=== PATIENT | male | born 1965 | race Caucasian/White ===

== ENCOUNTER 2023-05-26 10:49 | Emergency (ER) | payer BC, SELFPAY ==
[2023-05-26] VITALS (59 sets, daily range): BP systolic 105–167; BP diastolic 56–100; PULSE 50–81; RESP 12–38; O2SAT 95–100; BMI 32.3
--- NOTE | 2023-05-26 10:59 | DI.RAD.S_ITS ---
PROCEDURE: XR CHEST 1V INDICATIONS: chest pain TECHNIQUE: One view of the chest was acquired. COMPARISON: None. FINDINGS: Surgical changes and devices: None. Lungs and pleura: Lungs are clear. No pleural effusions or pneumothorax. Mediastinum: Mediastinal contours appear normal. Heart size is normal. Bones and chest wall: No suspicious bony lesions. Overlying soft tissues appear unremarkable. IMPRESSION: No acute findings Approved by: Chadwick Perez M.D. on 05/26/2023 at 10:45
--- NOTE | 2023-05-26 10:59 | ED_ITS ---
HPI - Chest Pain General Chief Complaint: Chest Pain Stated Complaint: chest pain Time Seen by Provider: 05/26/23 10:52 History of Present Illness HPI narrative: 57-year-old male nonsmoker with noncontributory medical history presents with his in the chief complaint of chest pain that started this morning. He states it was gradual in onset and is situated in his central chest. There is no obvious provocation or palliation. He states it is crampy in nature and has been persistent for 3 hours. At its most intense it was a 7/10 and currently as a 2/10. He denies obvious radiation of his symptoms and has no associated cardiac equivalent such as dizziness, weakness or lightheadedness. He denies any shortness of breath, nausea, vomiting or diaphoresis. Denies any change in medications or diet. He denies any associated with eating or drinking. He has no exertional symptoms. He denies any unexplained fatigue with exercise and is otherwise well and free of complaint. He denies any history of the same. Related Data Allergies Allergy/AdvReac Type Severity Reaction Status Date / Time No Known Drug Allergies Allergy Verified 05/26/23 11:21 Review of Systems Review of Systems Narrative: GENERAL: Denies chills, fatigue, malaise, fever, sweats. HEENT: Denies sinus pain, ear pain, sore throat, difficulty swallowing, dizziness. RESPIRATORY: Denies dyspnea, cough, wheezing, hemoptysis, sputum. CARDIOVASCULAR: See HPI GASTROINTESTINAL: Denies nausea, vomiting, abdominal pain, diarrhea, constipation, melena. : Denies dysuria, frequency, incontinence, hematuria, urinary retention. MUSCULOSKELETAL: denies weakness, joint pain, or bony pain SKIN: Denies rash, skin lesions, or other NEUROLOGIC: Denies weakness, headache, numbness, change in speech, confusion, seizures, incoordination. PSYCHIATRIC: No concerning psychosocial issues. 12 point review of systems is negative except for those stated above Exam Narrative Exam Narrative: GENERAL: [57] year old patient appears stated age. Well-developed patient, in mild distress. HEAD: Atraumatic. Normocephalic. EYES: Pupils equal round and reactive. Extraocular motions intact. No scleral icterus. No injection or drainage. ENT: Nose without bleeding, purulent drainage. Throat without erythema, tonsillar hypertrophy or exudate. Airway patent. NECK: Trachea midline. Non tender CARDIOVASCULAR: Regular rate and rhythm without murmurs, gallops, or rubs. RESPIRATORY: Clear to auscultation. Breath sounds equal bilaterally. No wheezes, rales, or rhonchi. GASTROINTESTINAL: Abdomen soft, non-tender, nondistended. EXTREMITIES: No edema or joint tenderness. BACK: Nontender without deformity or crepitance. No flank tenderness. NEURO: AOx3. SKIN: No rash or erythema of visible areas Initial Vital Signs Initial Vital Signs: Vital Signs Pulse Rate 66 05/26/23 10:53 Respiratory Rate 38 H 05/26/23 10:53 Scores HEART Score Heart Score history: Slightly Suspicious Heart Score EKG: Normal Heart Score Age: 45-64 years old Heart Score risk factors: No known risk factors Heart Score troponin: < or = to normal limit Heart Score Total: 1 Course Orders Ordered: ED Orders 05/26/23 10:57 EKG-12 Lead Stat 05/26/23 10:59 XR chest 1V Stat 05/26/23 11:03 Complete Blood Count AUTO DIFF Stat 05/26/23 11:30 Comprehensive Metabolic Panel Stat Lipase Stat Troponin & CK Cardiac Panel Stat 05/26/23 14:35 Troponin & CK Cardiac Panel Stat Discontinued Medications Aspirin (Aspirin 81 Mg Chew Tab) 324 mg PO NOW ONE Stop: 05/26/23 11:00 Last Admin: 05/26/23 11:02 Dose: 324 mg Documented By: KATHY Sodium Chloride (Normal Saline 0.9%) 1,000 mls @ 150 mls/hr IV CONT JAY Last Infusion: 05/26/23 11:49 Dose: 0 mls/hr Documented By: Admin: 05/26/23 11:03 Dose: 150 mls/hr Documented By: KATHY Ketorolac Tromethamine (Ketorolac 30 Mg/Ml Vial) 15 mg IV NOW ONE Stop: 05/26/23 12:00 Last Admin: 05/26/23 12:07 Dose: 15 mg Documented By: JAMAR Nitroglycerin (Nitroglycerin 0.4 Mg Sl Tab) 0.4 mg SL [id number] PRN PRN Reason: Chest Pain Last Admin: 05/26/23 11:16 Dose: 0.4 mg Documented By: Admin: 05/26/23 11:03 Dose: 0.4 mg Documented By: KATHY Vital Signs Vital signs: Vital Signs - 8 hr 05/26/23 10:56 05/26/23 10:53 05/26/23 10:54 Pulse Rate 67 66 65 Respiratory Rate 16 38 H 19 Blood Pressure 167/100 H Pulse Oximetry 97 99 Oxygen Delivery Method Room Air 05/26/23 10:54 05/26/23 11:03 05/26/23 10:55 Pulse Rate 64 Respiratory Rate 23 Blood Pressure 167/100 H 167/100 H Pulse Oximetry 99 Oxygen Delivery Method 05/26/23 11:00 05/26/23 11:05 05/26/23 11:07 Pulse Rate 69 73 78 Respiratory Rate Blood Pressure Pulse Oximetry 99 99 98 Oxygen Delivery Method 05/26/23 11:07 05/26/23 11:10 05/26/23 11:16 Pulse Rate 81 69 Respiratory Rate Blood Pressure 144/87 H 116/61 Pulse Oximetry 97 Oxygen Delivery Method 05/26/23 11:14 05/26/23 11:14 05/26/23 11:15 Pulse Rate 72 Respiratory Rate Blood Pressure 126/69 127/70 Pulse Oximetry 95 Oxygen Delivery Method 05/26/23 11:15 05/26/23 11:16 05/26/23 11:16 Pulse Rate 70 70 Respiratory Rate 24 Blood Pressure 123/69 Pulse Oximetry 97 96 Oxygen Delivery Method 05/26/23 11:17 05/26/23 11:17 05/26/23 11:20 Pulse Rate 67 Respiratory Rate Blood Pressure 116/65 126/59 L Pulse Oximetry 98 Oxygen Delivery Method 05/26/23 11:20 05/26/23 11:25 05/26/23 11:30 Pulse Rate 72 69 Respiratory Rate Blood Pressure 120/70 Pulse Oximetry 97 96 Oxygen Delivery Method 05/26/23 11:30 05/26/23 11:35 05/26/23 11:35 Pulse Rate 64 63 Respiratory Rate Blood Pressure 105/67 Pulse Oximetry 98 98 Oxygen Delivery Method 05/26/23 11:40 05/26/23 11:40 05/26/23 11:45 Pulse Rate 58 L 61 Respiratory Rate Blood Pressure 116/68 Pulse Oximetry 98 98 Oxygen Delivery Method 05/26/23 11:50 05/26/23 11:55 05/26/23 12:00 Pulse Rate 62 58 L Respiratory Rate Blood Pressure 112/63 Pulse Oximetry 98 98 Oxygen Delivery Method 05/26/23 12:00 05/26/23 12:05 05/26/23 12:10 Pulse Rate 60 55 L 61 Respiratory Rate Blood Pressure Pulse Oximetry 98 98 99 Oxygen Delivery Method 05/26/23 12:15 05/26/23 12:20 05/26/23 12:25 Pulse Rate 61 62 63 Respiratory Rate Blood Pressure Pulse Oximetry 99 98 98 Oxygen Delivery Method Room Air 05/26/23 12:30 05/26/23 12:30 05/26/23 12:35 Pulse Rate 58 L 55 L Respiratory Rate 15 17 Blood Pressure 108/56 L Pulse Oximetry 97 97 Oxygen Delivery Method 05/26/23 12:40 05/26/23 12:45 05/26/23 12:50 Pulse Rate 54 L 56 L 55 L Respiratory Rate 12 14 19 Blood Pressure Pulse Oximetry 98 98 98 Oxygen Delivery Method 05/26/23 12:55 05/26/23 13:00 05/26/23 13:00 Pulse Rate 61 58 L Respiratory Rate 24 18 Blood Pressure 124/69 Pulse Oximetry 98 97 Oxygen Delivery Method 05/26/23 13:05 05/26/23 13:10 05/26/23 13:15 Pulse Rate 53 L 55 L 52 L Respiratory Rate 18 16 16 Blood Pressure Pulse Oximetry 96 98 97 Oxygen Delivery Method 05/26/23 13:20 05/26/23 13:25 05/26/23 13:30 Pulse Rate 52 L 52 L Respiratory Rate 16 16 Blood Pressure 128/76 Pulse Oximetry 98 98 Oxygen Delivery Method 05/26/23 13:30 05/26/23 13:35 05/26/23 13:40 Pulse Rate 53 L 52 L 64 Respiratory Rate 16 16 16 Blood Pressure Pulse Oximetry 97 97 98 Oxygen Delivery Method 05/26/23 13:45 05/26/23 13:50 05/26/23 13:55 Pulse Rate 54 L 59 L 61 Respiratory Rate 16 16 19 Blood Pressure Pulse Oximetry 97 98 99 Oxygen Delivery Method 05/26/23 14:00 05/26/23 14:00 05/26/23 14:05 Pulse Rate 52 L 52 L Respiratory Rate 17 15 Blood Pressure 130/80 Pulse Oximetry 98 97 Oxygen Delivery Method 05/26/23 14:10 05/26/23 14:15 05/26/23 14:20 Pulse Rate 56 L 57 L 52 L Respiratory Rate 17 15 15 Blood Pressure Pulse Oximetry 99 98 97 Oxygen Delivery Method 05/26/23 14:25 05/26/23 14:30 05/26/23 14:30 Pulse Rate 50 L 52 L Respiratory Rate 17 17 Blood Pressure 114/71 Pulse Oximetry 98 98 Oxygen Delivery Method 05/26/23 14:35 05/26/23 14:40 05/26/23 14:45 Pulse Rate 56 L 62 54 L Respiratory Rate 22 14 19 Blood Pressure Pulse Oximetry 99 99 98 Oxygen Delivery Method 05/26/23 14:50 05/26/23 14:55 05/26/23 15:00 Pulse Rate 52 L 59 L Respiratory Rate 19 18 Blood Pressure 161/95 H Pulse Oximetry 97 98 Oxygen Delivery Method 05/26/23 15:00 05/26/23 15:32 Pulse Rate 54 L 55 L Respiratory Rate 20 20 Blood Pressure 139/79 Pulse Oximetry 97 100 Oxygen Delivery Method Room Air MDM - Chest Pain Lab Data 05/26/23 11:03 05/26/23 11:30 Labs: Lab Results 05/26/23 05/26/23 05/26/23 Range/Units 11:03 11:30 14:35 WBC 11.4 H (4.5-11.0) X10^3/uL RBC 4.97 (4.5-5.9) X10^6/uL Hgb 15.3 (13.5-17.5) g/dL Hct 45.0 (41-53) % MCV 90.4 (80-100) fL MCH 30.8 (26-34) PG MCHC 34.1 (30-36) % RDW 12.5 (11.6-14.8) % Plt Count 174 (150-400) X10^3/uL Neut % (Auto) 80.9 H (50-75) % Lymph % (Auto) 9.4 L (25-40) % [place] % (Auto) 6.1 (3-14) % Eos % (Auto) 3.0 (2-4) % Baso % (Auto) 0.6 (0-2) % Neut # (Auto) 9200 H (4092-9721) /uL Lymph # (Auto) 1100 (1059-6607) /uL [place] # (Auto) 700 (0-900) /uL Eos # (Auto) 300 (0-450) /uL Baso # (Auto) 100 (0-100) /uL Sodium 137 (137-145) mmol/L Potassium 4.6 (3.4-5.1) mmol/L Chloride 107 (98-107) mmol/L Carbon Dioxide 29 (22-32) mmol/L BUN 23 H (9-20) mg/dL Creatinine 0.83 (0.66-1.25) mg/dL Estimated GFR > 60 (>60) mL/min BUN/Creatinine Ratio 27.7 H (6-22) Glucose 101 H (70-100) mg/dL Calcium 7.8 L (8.4-10.2) mg/dL Total Bilirubin 0.6 (0.2-1.3) mg/dL AST 20 (17-59) IU/L ALT 20 (<50) IU/L Alkaline Phosphatase 67 (38-126) U/L Total Creatine Kinase 59 51 L (55-170) U/L Troponin I < 0.012 < 0.012 (0.01-0.034) ng/mL Total Protein 5.9 L (6.3-8.2) g/dL Albumin 3.4 L (3.5-5.0) g/dL Globulin 2.5 (1.7-4.1) g/dL Albumin/Globulin Ratio 1.4 (1.0-2.8) Lipase 64 (23-300) U/L MDM Narrative Medical decision making narrative: CC: Complicating co-morbidities: Data collected from: Patient Medical records reviewed: Prior notes reviewed in our EMR Differential considered, but not limited to: Exam documented above, pertinent findings include: Lab Test results independently reviewed as above. Pertinent findings: Independently reviewed EKG as above Imaging studies independently reviewed: CXR without acute findings Scores Used: HEART (1) Treatments: Nitro, Toradol Re-evaluations: No change after nitro, resolution after Toradol Discussion: Patient with reassuring history and physical exam, multiple asmita gnoses considered as noted above. No exertional symptoms, no radiation of pain, no shortness of breath, exertional component or recent exercise intolerance. EKG nonischemic, troponin x2 negative, heart score 1. No change with nitro, complete resolution with Toradol, patient encouraged to follow closely with primary care, return for worsening symptoms Disposition: see below, along with detailed discharge instructions that have been reviewed with patient as well as indications for ED re-evaluation and additional outpatient follow up Discharge Plan Departure Patient Disposition: Home Clinical Impression: Atypical chest pain Instructions: DI for Atypical Chest Pain Activity Restrictions/Additional Instructions: *You have been diagnosed with [atypical chest pain. As we discussed your history and physical exam are reassuring and there is no evidence of heart attack] *What to do: *Please continue to take your regular medications as directed. [ ] New medication prescriptions sent to your pharmacy: [ ] [ ] New medication written as a paper prescription [ ] No new medications given *Please follow up with your primary care provider in 2-3 days, call for an appointment. Let them know you were seen in the Emergency Department and that we ask that you be seen in follow up. We will electronically transmit a record of today's note if your PCP is in our system *If you do not have a primary care provider please contact the [facility] Resource line at [phone]. They will ask some questions about your medical history and help get you set up with a doctor in the community. *Return to Emergency Department if you should have any new, worsening or concerning symptoms, such as [fever greater than 101 F, shaking chills, worsening pain, persistent vomiting or other bothersome symptoms] Stand Alone Forms: Patient Portal/API
[2023-05-26] MEDS: ASPIRIN 81 MG CHEW TAB 324 MG PO (11:02)
[2023-05-26] MEDS: SODIUM CHLORIDE 0.9% 1,000 ML 150 ML IV (11:03)
[2023-05-26] MEDS: NITROGLYCERIN 0.4 MG SL TAB SL ×2 (11:03→11:16)
[2023-05-26 11:11] LABS: Add Manual Diff / Slide Review NO; Basophils Absolute Auto 100 /uL (0-100); Basophils Percent Auto 0.6 % (0-2); Eosinophils Absolute Auto 300 /uL (0-450); Hemoglobin 15.3 g/dL (13.5-17.5); Lymphocytes Absolute Auto 1100 /uL (1100-4500); Lymphocytes Percent Auto 9.4 % (25-40); Mean Corpuscular HGB Conc 34.1 % (30-36); Mean Corpuscular Hemoglobin 30.8 PG (26-34); Mean Corpuscular Volume 90.4 fL (80-100); Monocytes Absolute Auto 700 /uL (0-900); Monocytes Percent Auto 6.1 % (3-14); Neutrophils Absolute Auto 9200 /uL (1500-7000); Neutrophils Percent Auto 80.9 % (50-75); Platelet Count 174 X10^3/uL (150-400); Red Blood Cell Count 4.97 X10^6/uL (4.5-5.9); Red Cell Distribution Width 12.5 % (11.6-14.8); White Blood Cell Count 11.4 X10^3/uL (4.5-11.0)
[2023-05-26 11:51] LABS: Alanine Aminotransferase 20 IU/L (<50); Albumin 3.4 g/dL (3.5-5.0); Albumin Globulin Ratio 1.4 (1.0-2.8); Alkaline Phosphatase 67 U/L (38-126); Aspartate Aminotransferase 20 IU/L (17-59); BUN Creatinine Ratio 27.7 (6-22); Bilirubin Total 0.6 mg/dL (0.2-1.3); Blood Urea Nitrogen 23 mg/dL (9-20); Calcium 7.8 mg/dL (8.4-10.2); Carbon Dioxide 29 mmol/L (22-32); Chloride 107 mmol/L (98-107); Creatine Kinase 59 U/L (55-170); Estimated Glomerular Filt Rate > 60 mL/min (>60); Globulin 2.5 g/dL (1.7-4.1); Glucose 101 mg/dL (70-100); HEMOLYSIS < 15 (0-50); Lipase 64 U/L (23-300); Potassium 4.6 mmol/L (3.4-5.1); Sodium 137 mmol/L (137-145); Total Protein 5.9 g/dL (6.3-8.2)
[2023-05-26 12:02] LABS: Troponin I < 0.012 ng/mL (0.01-0.034)
[2023-05-26] MEDS: KETOROLAC 30 MG/ML VIAL 15 MG IV (12:07)
[2023-05-26 14:53] LABS: Creatine Kinase 51 U/L (55-170)
[2023-05-26 15:06] LABS: Troponin I < 0.012 ng/mL (0.01-0.034)
== END 2023-05-26 15:34 | disposition home or self-care (01) ==
PROVIDERS: Emergency Provider Emergency Medicine
DX: R07.89 Other chest pain (principal)
CPT/HCPCS: 36415; 71045; 80053; 82550; 83690; 84484; 85025; 93005; 93010; 96374; 99284; J1885